=== PATIENT | male | born 1945 ===

== ENCOUNTER → 2021-12-24 | Outpatient (CLI) | payer MEDICARE ==
[~2021-12-24] VITALS: Ht 175.3 cm; Wt 76.8 kg
[2021-12-24 09:23] VITALS: BP 135/89
== END | disposition home or self-care (01) ==
LOC: SRCNTR 08:52
PROVIDERS: ATTEND Internal Medicine
DX: R91.8 Other nonspecific abnormal finding of lung field (principal); C18.9 Malignant neoplasm of colon, unspecified
CPT/HCPCS: G0463; Z7500

== ENCOUNTER → 2022-04-08 | Outpatient (CLI) | payer MEDICARE ==
[~2022-04-08] VITALS: Ht 175.3 cm; Wt 78.0 kg
[2022-04-08 10:10] VITALS: BP 128/99
== END | disposition home or self-care (01) ==
LOC: SRCNTR 09:40
PROVIDERS: ATTEND Internal Medicine
DX: Z09 Encounter for follow-up examination after completed treatment for conditions other than malignant neoplasm (principal); R91.8 Other nonspecific abnormal finding of lung field
CPT/HCPCS: G0463

== ENCOUNTER → 2022-05-27 | Outpatient (CLI) | payer MEDICARE ==
[~2022-05-27] VITALS: Ht 175.3 cm; Wt 77.3 kg
[2022-05-27 10:31] VITALS: BP 122/80
== END | disposition home or self-care (01) ==
LOC: SRCNTR 10:17
PROVIDERS: ATTEND Internal Medicine
DX: Z09 Encounter for follow-up examination after completed treatment for conditions other than malignant neoplasm (principal); R91.8 Other nonspecific abnormal finding of lung field; C18.9 Malignant neoplasm of colon, unspecified; Z90.49 Acquired absence of other specified parts of digestive tract
CPT/HCPCS: G0463; Z7500

== ENCOUNTER → 2022-08-26 | Outpatient (CLI) | payer MEDICARE ==
[~2022-08-26] VITALS: Ht 175.3 cm; Wt 76.5 kg
[~2022-08-26] MED LIST: LOSA-381 PO; METF-1211 PO
[2022-08-26 09:41] VITALS: BP 138/91
== END | disposition home or self-care (01) ==
LOC: SRCNTR 09:24
PROVIDERS: ATTEND Internal Medicine
DX: R91.1 Solitary pulmonary nodule (principal)
CPT/HCPCS: G0463; Z7500

== ENCOUNTER → 2024-08-17 | Outpatient (CLI) | payer MEDICARE, OTHER ==
[~2024-08-17] VITALS: Ht 175.3 cm; Wt 79.0 kg
[2024-08-17 09:43] VITALS: BP 112/81; PULSE 82; RESP 19; TEMP 98.4; O2SAT 96
== END | disposition still patient (30) ==
LOC: SRCNTR 09:23
PROVIDERS: ATTEND Internal Medicine
DX: C18.9 Malignant neoplasm of colon, unspecified (principal); J84.10 Pulmonary fibrosis, unspecified
CPT/HCPCS: G0463; Z7500